=== PATIENT | male | born 1950 | race African-American/Black ===

== ENCOUNTER 2016-05-30 16:25 | Emergency (ER) | payer MEDICARE, MEDICAID ==
[~2016-05-30] VITALS: Ht 177.8 cm; Wt 86.6 kg
[2016-05-30 16:37] VITALS: BP 147/79
[2016-05-30 17:24] LABS: BUN/Creatinine Ratio 11.3; Calcium 8.9 mg/dL (8.5-10.1); Potassium 4.7 mmol/L (3.5-5.1)
[2016-05-30 17:27] LABS: Bilirubin, Total 0.3 mg/dL (0.2-1.0); Total Protein 6.8 g/dL (6.4-8.2)
[2016-05-30 18:22] LABS: Basophils # (auto) 0 uL; DEFINITIVE VIEW TRANSMISSION; Eosinophils # (auto) 0 uL; Eosinophils % (auto) 0.1 % (0.0-7.0); Hematocrit 40.8 % (41.0-53.0); Hemoglobin 12.3 g/dL (13.5-17.5); Lymphocytes # (auto) 1.2 uL; Lymphocytes % (auto) 6.4 % (10.0-50.0); Mean Corpuscular Hemoglobin 31.8 pg (28.0-32.0); Mean Corpuscular Hgb Conc. 30.1 g/dL (32.0-36.0); Mean Corpuscular Volume 105.7 fL (80.0-100.0); Mean Platelet Volume 8.6 fL (7.4-10.4); Monocytes # (auto) 0.2 uL; Monocytes % (auto) 0.8 % (0.0-12.0); Neutrophils # (auto) 17.6 uL; Neutrophils % (auto) 92.7 % (37.0-80.0); Platelet Count (auto) 272 10^3/uL (140-450); Red Cell Distribution Width 17.4 % (11.6-16.0); White Blood Cell 18.9 10^3/uL (4.4-10.8)
[2016-06-02] MEDS ORDERED: TAMS0.4C36 PO (02:51)
[2016-06-02] MEDS ORDERED: METO25TA5 PO (02:51)
[2016-06-02] MEDS ORDERED: MORP30TA64 PO (02:51)
[2016-06-02] MEDS ORDERED: DARU1TAB PO (02:51)
[2016-06-02] MEDS ORDERED: PERCOT PO (02:51)
[2016-06-02] MEDS ORDERED: DIP25C PO (02:51)
[2016-06-02] MEDS ORDERED: CYCL1TAB18 PO (02:51)
[2016-06-02] MEDS ORDERED: RALT400T PO (02:51)
[2016-06-02] MEDS ORDERED: NALO1TAB2 PO (02:51)
[2016-06-02] MEDS ORDERED: AMIT1TAB92 PO (02:51)
[2016-06-02] MEDS ORDERED: RIVA10TA PO (02:51)
[2016-06-02] MEDS ORDERED: ALEN70SO OR (02:51)
[2016-06-02] MEDS ORDERED: TRAZ100T2 PO (02:51)
[2016-06-02] MEDS ORDERED: ALL300T PO (02:51)
[2016-06-03] MEDS ORDERED: LEVO500T3 PO (12:48)
== END 2016-05-31 00:09 | disposition left against medical advice (07) ==
LOC: ER 16:29
DX: R53.1 Weakness (principal); Z53.21 Procedure and treatment not carried out due to patient leaving prior to being seen by health care provider
CPT/HCPCS: 36415; 71020; 80053; 85025; 93005

== ENCOUNTER 2018-08-30 19:24 | Emergency (ER) | payer MEDICARE, MEDICAID ==
[~2018-08-30] VITALS: Ht 175.3 cm; Wt 79.4 kg
[~2018-08-30 19:24] MED LIST: ALEN70SO OR; ALL300T PO; AMIT1TAB92 PO; CYCL1TAB18 PO; DARU1TAB PO; DIP25C PO; LEVO500T21 PO; METO25TA5 PO; MORP-110 PO; NALO1TAB2 PO; PERCOT PO; RALT400T PO; RIVA10TA PO; TAMS0.4C36 PO; TRAZ100T2 PO
[2018-08-30 19:54] VITALS: BP 130/75
== END 2018-08-30 21:36 | disposition home or self-care (01) ==
LOC: ER 19:29
DX: J06.9 Acute upper respiratory infection, unspecified (principal); M25.561 Pain in right knee; G89.29 Other chronic pain; J44.9 Chronic obstructive pulmonary disease, unspecified; I12.9 Hypertensive chronic kidney disease with stage 1 through stage 4 chronic kidney disease, or unspecified chronic kidney disease; N18.9 Chronic kidney disease, unspecified; I25.10 Atherosclerotic heart disease of native coronary artery without angina pectoris; F17.210 Nicotine dependence, cigarettes, uncomplicated; Z88.8 Allergy status to other drugs, medicaments and biological substances; Z79.899 Other long term (current) drug therapy

== ENCOUNTER 2020-01-25 15:19 | Emergency (ER) | payer MEDICAID, MEDICARE, OTHER ==
[~2020-01-25] VITALS: Ht 175.3 cm; Wt 84.4 kg
[~2020-01-25 15:19] MED LIST changes: +CYCL10TA6 PO; -CYCL1TAB18 PO; -DARU1TAB PO; +DARU1TAB2 PO; -TRAZ100T2 PO; +TRAZ100T3 PO
[2020-01-25] MEDS ORDERED: methylPREDNISolone SOD SUCC 125 MG/2 ML VL IM ONE (17:45)
[2020-01-25 18:00] VITALS: BP 146/83
== END 2020-01-25 18:01 | disposition home or self-care (01) ==
LOC: ER 15:19
DX: G56.01 Carpal tunnel syndrome, right upper limb (principal); M13.831 Other specified arthritis, right wrist
CPT/HCPCS: 29125; 36415; 73110; 84550; 96372; 99284; J2930